=== PATIENT | male | born 1980 ===

== ENCOUNTER 2021-06-03 09:29 | Outpatient (CLI) | payer OTHER | END 2021-06-03 15:10 | disposition home or self-care (01) | LOC: SONOGRAMA 09:29 | DX: R10.84 Generalized abdominal pain (principal); R22.2 Localized swelling, mass and lump, trunk ==

== ENCOUNTER 2021-07-07 08:43 | Emergency (ER) | payer BC ==
[~2021-07-07] VITALS: Ht 177.8 cm; Wt 88.9 kg
[2021-07-07] MEDS ORDERED: AMOX-CLAV 875-1 EACH PO (10:40)
[2021-07-07] MEDS ORDERED: PERCOCET 5-3251 EACH PO (10:40)
[2021-07-07] MEDS ORDERED: PROTONIX40 MG PO (10:41)
[2021-07-07] MEDS ORDERED: INTESTINEX680 M1 PO (10:41)
== END 2021-07-07 12:13 | disposition home or self-care (01) ==
LOC: ER 08:43
DX: L02.213 Cutaneous abscess of chest wall (principal); Z03.818 Encounter for observation for suspected exposure to other biological agents ruled out